=== PATIENT | female | born 1985 | race Caucasian/White ===

== ENCOUNTER 2018-08-30 15:59 | Inpatient (IN) | payer BC ==
[2018-08-30 20:12] LABS: ABS Basophils 0.1 10^3/ul (0-0.2); ABS Eosinophils 0.1 10^3/ul (0-0.6); ABS Lymphocytes 2.6 10^3/ul (1.0-4.8); ABS Monocytes 0.4 10^3/ul (0-0.8); ABS Neutrophils 9.8 10^3/ul (1.5-7.7); ABS Nucleated RBC 0 10^3/ul; Eosinophil % 0.6 %; Hematocrit 37 % (35-47); Hemoglobin 12.2 g/dl (12.0-16.0); Lymphocyte % 20.3 %; Mean Corpuscular HGB Conc 33 g/dl (31-36); Mean Corpuscular Hemoglobin 28 pg (27-31); Mean Corpuscular Volume 83 fL (80-97); Mean Platelet Volume 8.3 fL (7.4-10.4); Nucleated Red Blood Cells % 0; Platelet Count 261 10^3/ul (150-450); Red Cell Distribution Width 15 % (10.5-15)
[2018-08-30] MEDS ORDERED: Buffered Lidocaine 1% SYRIN* 1 ML/SYRINGE INTRADERM ONE (20:33)
[2018-08-30] MEDS ORDERED: Lactated Ringers 1000 ML Bag* 1,000 ML IV ONE ×2 (20:33→22:02)
[2018-08-30] MEDS ORDERED: OBEPIDURAL* 250 ML EPIDURAL ONE (20:35)
--- NOTE | 2018-08-30 20:40 | HP ---
General Information - Reason for Visit Pt has bee having mild q5min contractions all day. They became stronger this afternoon so she came to L&D. - General Information Maternal Age: 33 Grav: 3 Para: 1 SAB: 1 IEA: 0 Estimated Due Date: 08/29/18 Determined By: LMP Maternal Blood Type and Rh: O Positive - Results this Serology/RPR Result: Non-Reactive Rubella Result: Immune HBsAg Result: Negative HIV Result: Negative GBS Culture Result: Negative Past Medical History Delivery History: Hx Uncomplicated Vaginal Delivery Pertinent Past Medical History: Non-Contributory Pertinent Past Surgical History: None Pertinent Family History: Non-Contributory - Antepartal Records Antepartal Records: Reviewed, Uncomplicated Review of Systems Constitutional: Uncomfortable CV Complaint: No Respiratory: Shortness of Breath: No Genitourinary: No Dysuria, No Bleeding, No Leaking Fluid Musculoskeletal: Contractions Movement: Normal Exam Allergies/Adverse Reactions: Allergies No Known Allergies Allergy (Verified 06/13/16 08:24) Lab Values - Entire Visit: Laboratory Tests 08/30/18 08/30/18 20:00 20:00 WBC 13.0 H RBC 4.40 Hgb 12.2 Hct 37 MCV 83 MCH 28 MCHC 33 RDW 15 Plt Count 261 MPV 8.3 Neut % (Auto) 75.5 Lymph % (Auto) 20.3 [place] % (Auto) 3.0 Eos % (Auto) 0.6 Baso % (Auto) 0.6 Absolute Neuts (auto) 9.8 H Absolute Lymphs (auto) 2.6 Absolute Monos (auto) 0.4 Absolute Eos (auto) 0.1 Absolute Basos (auto) 0.1 Absolute Nucleated RBC 0 Nucleated RBC % 0 Blood Type O Positive - Measurements Height: 5 ft 9 in Weight: 225 lb Weight in lbs: 225.086945 Body Mass Index (BMI): 33.2 Pre- Weight: 210 lb Weight Gained This : 15 lbs and 0 ozs - Exam Breast: Breast Exam Deferred Extremities: No Edema Heart: Normal Rhythm/Heart Sounds HEENT: No Significant Findings - Abdominal Exam Abdomen Exam: Non-Tender - Ultrasound/Biophysical Profile Ultrasound Status: Not Done Targeted Exam Findings Cervical Exam: 4cm Effacement: 90% Station: -2 Presenting Part: Vertex Membrane Status: Bulging - exam by RN EFM Findings - External Monitor Findings Baseline Heart Rate: 135 External Monitor Findings: Accelerations Present, No Pattern of Variable or Late Decelerations, Variability Moderate, Baseline Stable Contractions: Regular Assessment/Plan - Assessment @40.1wks in active labor. Desires epidural. GBS neg. - Obstetrical Risk Factors Obstetrical Risk Factors: Obesity - Plan Plan: Admit - Anticipate Vaginal Delivery
[2018-08-30] MEDS ORDERED: Lactated Ringers 1000 ML Bag* 1,000 ML IV SCH ×2 (21:00→23:00)
[2018-08-30] MEDS ORDERED: Lidocaine 1.5% EPI 1:200,000* 30 ML SDV ONE (21:18)
[2018-08-30] MEDS ORDERED: Famotidine TAB* 20 MG PO PRN (22:02)
[2018-08-30] MEDS ORDERED: Phenylephrine IV* 40 MCG/ML 10 ML SYRINGE IV PUSH PRN (22:02)
[2018-08-30] MEDS ORDERED: Sodium Citrate/Citric Acid* 15 ML UDC PO PRN (22:02)
--- NOTE | 2018-08-30 22:21 | PN ---
Progress Note - Progress Note Date of Service: 08/30/18 Note: Pt about 30min s/p epidural. Comfortable. +late decels but mod variability. BPs low normal. Cx: /-2. AROM - lots of clear fluid - ?OP presentation. Pt repositioned.
[2018-08-30] MEDS ORDERED: OBEPIDURAL* 250 ML EPIDURAL SCH (23:00)
[2018-08-31] MEDS ORDERED: Acetaminophen TAB* 325 MG PO PRN (00:46)
[2018-08-31] MEDS ORDERED: Glycerin ADULT SUPP PR PRN (00:46)
[2018-08-31] MEDS ORDERED: Dibucaine 1% 28.35 GM TUBE PR PRN (00:46)
[2018-08-31] MEDS ORDERED: Witch Hazel PAD* JAR TOPICAL PRN (00:46)
[2018-08-31] MEDS ORDERED: Lactated Ringers 1000 ML Bag* 1,000 ML IV SCH (01:00)
[2018-08-31] MEDS: Ibuprofen TAB* 600 MG PO PRN ×4 (03:17→21:06)
[2018-08-31] MEDS ORDERED: Simethicone TAB* 80 MG TAB.CHEW PO SCH (08:30)
[2018-08-31] MEDS: Docusate CAP* 100 MG PO SCH ×3 (09:13→21:06)
--- NOTE | 2018-08-31 16:38 | PTEDU ---
Patient Name: SAI MIGUEL SAI MIGUEL selected video: Follow Me Mum: The [facility] to Successful to view on 019 at 4:37:57 PM [id number]
[2018-09-01] MEDS: Ibuprofen TAB* 600 MG PO PRN ×2 (03:33→09:30)
[2018-09-01 07:30] LABS: ABS Basophils 0.1 10^3/ul (0-0.2); ABS Eosinophils 0.3 10^3/ul (0-0.6); ABS Lymphocytes 3.8 10^3/ul (1.0-4.8); ABS Monocytes 0.6 10^3/ul (0-0.8); ABS Neutrophils 8.4 10^3/ul (1.5-7.7); ABS Nucleated RBC 0 10^3/ul; Hematocrit 34 % (35-47); Lymphocyte % 29.1 %; Mean Corpuscular HGB Conc 33 g/dl (31-36); Mean Corpuscular Hemoglobin 28 pg (27-31); Mean Corpuscular Volume 85 fL (80-97); Mean Platelet Volume 8.1 fL (7.4-10.4); Nucleated Red Blood Cells % 0; Platelet Count 207 10^3/ul (150-450); Red Blood Count 3.93 10^6/ul (4.00-5.40); Red Cell Distribution Width 16 % (10.5-15); White Blood Count 13.2 10^3/ul (3.5-10.8)
[2018-09-01] MEDS: Docusate CAP* 100 MG PO SCH (08:14)
[2018-09-01] MEDS ORDERED: Ferrous Gluconate TAB* 324 MG TAB PO SCH (09:00)
[2018-09-01 09:07] VITALS: BP 103/70
== END 2018-09-01 11:02 | disposition home or self-care (01) | DRG 560 ==
LOC: MCHOBOUT 15:59 → MCHOB 19:55
PROVIDERS: ADMIT Obstetrics & Gynecology; ATTEND Obstetrics & Gynecology
PROC: 10E0XZZ Delivery of Products of Conception, External Approach (ICD-10-PCS; principal; 2018-08-31)
PROC: 10907ZC Drainage of Amniotic Fluid, Therapeutic from Products of Conception, Via Natural or Artificial Opening (ICD-10-PCS; 2018-08-31)
PROC: 0HQ9XZZ Repair Perineum Skin, External Approach (ICD-10-PCS; 2018-08-31)
DX: O48.0 Post-term pregnancy (principal); Z37.0 Single live birth; O70.0 First degree perineal laceration during delivery; Z3A.40 40 weeks gestation of pregnancy
CPT/HCPCS: 36415; 85025; 86850; 86900; 86901; A9270-GY